=== PATIENT | female | born 1960 | race Caucasian/White ===

== ENCOUNTER 2017-07-25 11:25 | Emergency (ER) | payer MEDICARE ==
[~2017-07-25] VITALS: Ht 170.2 cm; Wt 97.0 kg
[~2017-07-25 11:25] MED LIST: ALBU18HF INHALATION; AZIT250T94 PO; GABA100C14 PO
[2017-07-25 11:36] VITALS: Ht 170.2 cm; Wt 97.0 kg
[2017-07-25] MEDS ORDERED: NAPR-260 PO (12:58)
[2017-07-25] MEDS ORDERED: GABA300C16 PO (12:58)
[2017-07-25] MEDS ORDERED: MED4DP PO (12:58)
--- NOTE | 2017-07-25 15:01 | ERD ---
ER Documentation Chief Complaint Chief Complaint HAS LEFT HAND PAIN UNK CAUSE HPI 56-year-old female complaining of left hand pain 1 week. Patient states that the pain is worse with certain positions. Denies numbness or tingling. Has not taken medications for pain. Is right-hand dominant. Patient is also requesting a refill of her gabapentin. ROS All systems reviewed and are negative except as per history of present illness. Medications Home Meds Active Scripts Gabapentin* (Gabapentin*) 300 Mg Capsule, 300 MG PO TID, #90 CAP Prov:JITENDRA MICHEL PA-C 07/25/17 Naproxen* (Naprosyn*) 500 Mg Tablet, 500 MG PO BID Y for PAIN AND/OR INFLAMMATION, #30 TAB Prov:JITENDRA MICHEL PA-C 07/25/17 Methylprednisolone* (Medrol* DOSE PACK) 4 Mg/Dose-Pack Tab.ds.pk, 4 MG PO . DIRECTED, #1 PACKET Prov:JITENDRA MICHEL PA-C 07/25/17 Gabapentin* (Gabapentin*) 100 Mg Capsule, 100 MG PO TID, #90 CAP Prov:LUIS E GARCIA MD 12/10/15 Azithromycin* (Zithromax*) 250 Mg Tablet, 250 MG PO .ZPACK DIRECTED, #6 TAB TAKE 500 MG (2 TABS) THE FIRST DAY THEN 250 MG (1 TAB) DAYS 2-5 Prov:LUIS E GARCIA MD 12/10/15 Albuterol Sulfate* (Ventolin HFA*) 18 Gm Hfa.aer.ad, 2 PUFF INHALATION Q4H, #1 INHALER Prov:LUIS E GARCIA MD 12/10/15 Allergies Allergies: Uncoded Allergies: CONTRAST DYE (Allergy, Mild, 11/21/10) PMhx/Soc History of Surgery: Yes (POLYP REMOVAL FROM URETHRA AND OVER GROWTH IN UTERUS ) Anesthesia Reaction: No Hx Neurological Disorder: Yes (SEIZURE D/O) Hx Respiratory Disorders: No Hx Cardiac Disorders: No Hx Psychiatric Problems: No Hx Miscellaneous Medical Probl: No Hx Alcohol Use: No Hx Substance Use: No Hx Tobacco Use: No Smoking Status: Never smoker Physical Exam Vitals Vital Signs Date Time Temp Pulse Resp B/P Pulse Ox O2 Delivery O2 Flow Rate FiO2 07/25/17 11:36 98.0 122 18 138/86 98 Physical Exam GENERAL: The patient is well-appearing, well-nourished, in no acute distress CHEST: Clear to auscultation bilaterally. There are no rales, wheezes or rhonchi. HEART: Regular rate and rhythm. No murmurs, clicks, rubs or gallops. No S3 or S4. EXTREMITIES: Pulses intact. Normal range of motion. Positive Christiano's test. NEUROLOGIC: Alert and oriented. Motor strength in all 4 extremities with 5 out of 5 strength. Sensation grossly intact. SKIN: There is no apparent rash or petechiae. The skin is warm and dry. Procedures/MDM ER Course: Velcro splint applied to left upper extremity. Neuro intact pre-and post splint application. MDM: I have low suspicion for for tendon or ligament rupture. Her pain is in the distribution of her dequevains tenosynovitis. I have low suspicion for acute fracture dislocation. I have low suspicion for neurodeficit. Patient will be discharged with pain medication and recommended to rest extremity. Patient is told to follow-up with primary care within 1-2 days for close evaluation. I do not feel x-rays are indicated at today's visit. Patient has not had traumatic injury. All questions answered at discharge. Departure Diagnosis: Primary Impression: Medication refill Additional Impression: De Quervain's tenosynovitis, left Condition: Stable Patient Instructions: Taking Medicine Safely, De Quervain Tenosynovitis Referrals: ON LICENSE OF [facility] YOU HAVE RECEIVED A MEDICAL SCREENING EXAM AND THE RESULTS INDICATE THAT YOU DO NOT HAVE A CONDITION THAT REQUIRES URGENT TREATMENT IN THE EMERGENCY DEPARTMENT. FURTHER EVALUATION AND TREATMENT OF YOUR CONDITION CAN WAIT UNTIL YOU ARE SEEN IN YOUR DOCTORS OFFICE WITHIN THE NEXT 1-2 DAYS. IT IS YOUR RESPONSIBILITY TO MAKE AN APPOINTMENT FOR FOLOW-UP CARE. IF YOU HAVE A PRIMARY DOCTOR --you should call your primary doctor and schedule an appointment IF YOU DO NOT HAVE A PRIMARY DOCTOR YOU CAN CALL OUR PHYSICIAN REFERRAL HOTLINE AT IF YOU CAN NOT AFFORD TO SEE A PHYSICIAN YOU CAN CHOSE FROM THE FOLLOWING [facility] [address] [facility]. [facility] [address] [facility] [facility] [address] [facility]. [facility] [address] [facility]. [facility] [address] [facility]. [facility] [address] Additional Instructions: FOLLOW UP WITH YOUR PRIMARY CARE PHYSICIAN TOMORROW.Return to this facility if you are not improving as expected. JITENDRA MICHEL PA-C Jul 25, 2017 15:01
== END 2017-07-25 13:16 | disposition home or self-care (01) ==
LOC: FTE 11:25
DX: M65.4 Radial styloid tenosynovitis [de Quervain] (principal); Z76.0 Encounter for issue of repeat prescription

== ENCOUNTER 2018-06-26 20:16 | Emergency (ER) | END 2018-06-26 21:43 | disposition home or self-care (01) ==